=== PATIENT | female | born 1980 | race Two or more races ===

== ENCOUNTER 2019-03-07 12:09 | Emergency (ER) | payer BC ==
[~2019-03-07] VITALS: Ht 167.6 cm; Wt 64.3 kg
[2019-03-07] MEDS ORDERED: LEVO50TA5 PO (12:20)
--- NOTE | 2019-03-07 12:36 | NUR ---
PT A&OX4, CONGESTED COUGH NOTED, SKIN WARM TO TOUCH/DRY. SPOUSE & SON IN ROOM. PER SON: PT WAS SEEN BY PROVIDER RECENTLY, DX'D W/ FLU; RX FOR TAMIFLU (STARTED SATURDAY). SX STARTED SATURDAY. YESTERDAY DAVENPORT'S, BODY ACHES, DECREASED ENERGY; VOMITED X 1 TODAY. 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
[2019-03-07] MEDS ORDERED: OSEL75CA26 PO (12:42)
[2019-03-07] MEDS ORDERED: IBUPROFEN 600 MG TABLET ONE (12:49)
--- NOTE | 2019-03-07 12:55 | NUR ---
IBUPROFEN GIVEN PER EMAR
[2019-03-07] MEDS ORDERED: IBUPROFEN 600 MG TABLET PO ONE (13:00)
[2019-03-07 14:12] LABS: MEAN CORPUSCULAR HEMOGLOBIN 32.3 pg (27.0-34.8); MEAN CORPUSCULAR HGB CONC 33.6 g/dL (32.4-35.8); MEAN PLATELET VOLUME 8.6 fL (7.4-10.4); PLATELET COUNT 146 x10^3/uL (130-400); RED CELL DISTRIBUTION WIDTH 11.5 % (9.6-15.2)
[2019-03-07 14:26] LABS: ALANINE AMINOTRANSFERASE 23 U/L (12-78); ALBUMIN 3.1 g/dL (3.4-5.0); ANION GAP 6 mmol/L (5-15); CALCIUM 7.9 mg/dL (8.5-10.1); CHLORIDE 108 mmol/L (98-107); CREATININE 0.79 mg/dL (0.55-1.02)
[2019-03-07 14:30] LABS: ALKALINE PHOSPHATASE 58 U/L (45-117); BILIRUBIN,TOTAL 0.3 mg/dL (0.2-1.0); TOTAL PROTEIN 6.7 g/dL (6.4-8.2); TROPONIN I < 0.015 ng/mL (0.000-0.045)
[2019-03-07 14:31] LABS: MD YES
[2019-03-07 14:33] LABS: BANDS%(MANUAL) 25 % (0-7); LYMPH#(MANUAL) 0.72 x10^3/uL (1-3.4); LYMPHS% (MANUAL) 12 % (22-44); MONOS% (MANUAL) 5 % (2-9); SEG#(MANUAL) 3.48 x10^3/uL (1.8-6.8); SEGS% (MANUAL) 58 % (42-75)
[2019-03-07 14:37] LABS: <PLATELET ESTIMATE> ADEQUATE; <PLT MORPHOLOGY> NORMAL PLT MORPH; <RBC MORPHOLOGY> NORMAL; PMNS WITH VACUOLES 1+
[2019-03-07 15:52] VITALS: BP 103/66
== END 2019-03-07 16:05 | disposition home or self-care (01) ==
LOC: ED 13:00
DX: J11.00 Influenza due to unidentified influenza virus with unspecified type of pneumonia (principal)
CPT/HCPCS: 36415; 71046; 80053; 83605; 83880; 84145; 84484; 85025; 87040; 99284